=== PATIENT | female | born 1975 | race Caucasian/White ===

== ENCOUNTER 2018-07-06 10:12 | Inpatient (IN) | payer MEDICAID ==
[~2018-07-06] VITALS: Ht 160 cm; Wt 75.4 kg
[2018-07-06 10:21] VITALS: Ht 160 cm; Wt 75.4 kg
[2018-07-06 11:45] LABS: CALCIUM 8.9 mg/dL (8.5-10.1); CARBON DIOXIDE 29.6 mmol/L (21-32); CHLORIDE SERUM 100 mmol/L (98-107); CREATININE SERUM 0.6 mg/dL (0.6-1.0); GFR1 > 60 mL/min; GLUCOSE SERUM 237 mg/dL (74-106); POTASSIUM SERUM 4.3 mmol/L (3.5-5.1); SODIUM SERUM 135 mmol/L (136-145)
[2018-07-06 11:50] LABS: ALBUMIN 3.6 g/dL (3.4-5.0); ALKALINE PHOSPHATASE 86 U/L (46-116); ALT/SGPT 32 U/L (14-59); AST/SGOT 12 U/L (15-37); BILIRUBIN TOTAL 0.3 mg/dL (0.20-1.00); LIPASE 137 IU/L (73-393); TOTAL PROTEIN, SERUM 7.6 g/dL (6.4-8.2)
[2018-07-06 11:52] LABS: BASOPHIL % 0.3 % (0-2); PLATELET COUNT 297 x10^3mcL (130-400); RED CELL DISTRIBUTION WIDTH 13.1 % (11.5-14.5)
[2018-07-06 11:58] LABS: UA SPECIFIC GRAVITY <=1.005 (1.005-1.035); microscopic required? YES; urine erythrocyte 2+ (NEGATIVE)
[2018-07-06] MEDS ORDERED: METFORMIN500 M1 PO (13:46)
[2018-07-06] MEDS ORDERED: INSULIN SC (13:48)
[2018-07-06 14:50] LABS: MAGNESIUM 1.9 mg/dL (1.8-2.4); PHOSPHOROUS 3.6 mg/dL (2.5-4.9)
[2018-07-06 14:53] LABS: CHOLESTEROL/HDL RATIO 5.1
[2018-07-06 14:56] VITALS: BP 109/69
[2018-07-06 14:59] LABS: FREE T4 1.09 ng/dL (0.76-1.46); FREE THYROXINE INDEX 3.8 ug/dL (1.4-4.5); T3 TOTAL 1.11 ng/mL; T4(THYROXINE) 11.4 ug/dL (4.7-13.3)
[2018-07-06 16:32] LABS: AMPHETAMINE QUAL UR NONE DETECTED (See below)
[2018-07-06 16:55] VITALS: BP 103/57
[2018-07-06 21:01] VITALS: BP 104/63
[2018-07-07 05:13] VITALS: BP 103/56
[2018-07-07 06:33] LABS: CALCIUM 7.8 mg/dL (8.5-10.1); CARBON DIOXIDE 23.3 mmol/L (21-32); CHLORIDE SERUM 106 mmol/L (98-107); CREATININE SERUM 0.4 mg/dL (0.6-1.0); GFR1 > 60 mL/min; GLUCOSE SERUM 179 mg/dL (74-106); POTASSIUM SERUM 3.9 mmol/L (3.5-5.1); SODIUM SERUM 137 mmol/L (136-145)
[2018-07-07 06:53] LABS: BASOPHIL % 0.5 % (0-2); PLATELET COUNT 231 x10^3mcL (130-400); RED CELL DISTRIBUTION WIDTH 13.4 % (11.5-14.5)
[2018-07-07 07:59] VITALS: BP 114/64
[2018-07-07 11:54] VITALS: BP 113/71
[2018-07-07 11:56] VITALS: BP 99/61
[2018-07-07] MEDS ORDERED: LEVAQUIN750 MG PO (12:17)
[2018-07-07 13:02] VITALS: BP 113/71
== END 2018-07-07 13:52 | disposition home or self-care (01) | DRG 463 ==
LOC: ED 10:12 → DU 14:08
PROVIDERS: Emergency Medicine; Family Medicine
DX: N30.00 Acute cystitis without hematuria (principal); N17.0 Acute kidney failure with tubular necrosis; E11.65 Type 2 diabetes mellitus with hyperglycemia; R80.9 Proteinuria, unspecified; E78.5 Hyperlipidemia, unspecified; Z79.4 Long term (current) use of insulin; Z68.28 Body mass index [BMI] 28.0-28.9, adult; F17.210 Nicotine dependence, cigarettes, uncomplicated; Z79.84 Long term (current) use of oral hypoglycemic drugs
CPT/HCPCS: 82962; 83880; 84439; J0696; J1885; J2405; J7030; Q0092

== ENCOUNTER 2018-12-19 09:22 | Emergency (ER) | payer MEDICAID ==
[~2018-12-19] VITALS: Ht 160 cm; Wt 72.6 kg
[~2018-12-19 09:22] MED LIST: INSULIN SC; LEVAQUIN750 MG PO; METFORMIN500 M1 PO
[2018-12-19 09:23] VITALS: Ht 160 cm; Wt 72.6 kg
[2018-12-19 10:40] LABS: BASOPHIL % 0.3 % (0-2); PLATELET COUNT 242 x10^3mcL (130-400)
[2018-12-19 10:48] LABS: CALCIUM 8.8 mg/dL (8.5-10.1); CHLORIDE SERUM 100 mmol/L (98-107); CREATININE SERUM 0.6 mg/dL (0.6-1.0); GFR1 > 60 mL/min; GLUCOSE SERUM 285 mg/dL (74-106); POTASSIUM SERUM 4.3 mmol/L (3.5-5.1); RED CELL DISTRIBUTION WIDTH 14.6 % (11.5-14.5); SODIUM SERUM 138 mmol/L (136-145)
[2018-12-19 10:53] LABS: ALBUMIN 3.6 g/dL (3.4-5.0); ALKALINE PHOSPHATASE 70 U/L (46-116); ALT/SGPT 27 U/L (14-59); AST/SGOT 17 U/L (15-37); BILIRUBIN TOTAL 0.31 mg/dL (0.20-1.00); TOTAL PROTEIN, SERUM 7.5 g/dL (6.4-8.2)
[2018-12-19 11:09] LABS: microscopic required? YES; urine erythrocyte NEGATIVE (NEGATIVE)
[2018-12-19 13:12] VITALS: BP 129/72
== END 2018-12-19 15:01 | disposition home or self-care (01) ==
LOC: ED 09:22
PROVIDERS: Emergency Medicine
DX: N10 Acute pyelonephritis (principal); E11.9 Type 2 diabetes mellitus without complications; Z87.19 Personal history of other diseases of the digestive system
CPT/HCPCS: J0696; J1885; J7030

== ENCOUNTER 2019-02-27 19:05 | Emergency (ER) | payer MEDICAID ==
[~2019-02-27] VITALS: Ht 160 cm; Wt 73.9 kg
[2019-02-27 19:14] VITALS: Ht 160 cm; Wt 73.9 kg
[2019-02-27 21:29] LABS: microscopic required? YES; urine erythrocyte NEGATIVE (NEGATIVE)
[2019-02-27 23:48] VITALS: BP 124/76
== END 2019-02-27 23:48 | disposition home or self-care (01) ==
LOC: ED 19:05
PROVIDERS: Emergency Medicine
DX: N12 Tubulo-interstitial nephritis, not specified as acute or chronic (principal); E11.9 Type 2 diabetes mellitus without complications
CPT/HCPCS: J1885; Q0162

== ENCOUNTER 2019-11-28 22:02 | Emergency (ER) | payer MEDICAID ==
[~2019-11-28] VITALS: Ht 162.6 cm; Wt 75.7 kg
[2019-11-28 22:08] VITALS: Ht 162.6 cm; Wt 75.7 kg
[2019-11-28 23:41] LABS: microscopic required? YES; urine erythrocyte NEGATIVE (NEGATIVE)
[2019-11-28 23:43] LABS: BASOPHIL % 0.2 % (0-2); PLATELET COUNT 270 x10^3mcL (130-400)
[2019-11-28 23:57] LABS: CALCIUM 8.6 mg/dL (8.5-10.1); CHLORIDE SERUM 103 mmol/L (98-107); CREATININE SERUM 0.5 mg/dL (0.6-1.0); GFR1 > 60 mL/min; GLUCOSE SERUM 168 mg/dL (74-106); POTASSIUM SERUM 3.3 mmol/L (3.5-5.1); SODIUM SERUM 141 mmol/L (136-145)
[2019-11-29 00:02] LABS: ALBUMIN 3.3 g/dL (3.4-5.0); ALKALINE PHOSPHATASE 67 U/L (46-116); ALT/SGPT 33 U/L (14-59); AST/SGOT 18 U/L (15-37); BILIRUBIN TOTAL 0.2 mg/dL (0.20-1.00); LIPASE 133 IU/L (73-393); TOTAL PROTEIN, SERUM 6.8 g/dL (6.4-8.2)
[2019-11-29 03:07] VITALS: BP 117/71
== END 2019-11-29 03:07 | disposition home or self-care (01) ==
LOC: ED 22:02
PROVIDERS: Emergency Medicine
DX: R07.89 Other chest pain (principal); N39.0 Urinary tract infection, site not specified; E11.9 Type 2 diabetes mellitus without complications; Z90.49 Acquired absence of other specified parts of digestive tract
CPT/HCPCS: 36415; J1885; Q0092

== ENCOUNTER 2020-04-12 00:15 | Emergency (ER) | payer MEDICAID ==
[~2020-04-12] VITALS: Ht 157.5 cm; Wt 66.7 kg
[2020-04-12 00:27] VITALS: Ht 157.5 cm; Wt 66.7 kg
[2020-04-12 01:45] LABS: BASOPHIL % 0.8 % (0-2); PLATELET COUNT 248 x10^3mcL (130-400); RED CELL DISTRIBUTION WIDTH 15.2 % (11.5-14.5)
[2020-04-12 01:59] LABS: CALCIUM 8.4 mg/dL (8.5-10.1); CARBON DIOXIDE 27.6 mmol/L (21-32); CHLORIDE SERUM 102 mmol/L (98-107); CREATININE SERUM 0.6 mg/dL (0.6-1.0); GFR1 > 60 mL/min; GLUCOSE SERUM 259 mg/dL (74-106); POTASSIUM SERUM 3.8 mmol/L (3.5-5.1); SODIUM SERUM 135 mmol/L (136-145)
[2020-04-12 02:03] LABS: ALKALINE PHOSPHATASE 70 U/L (46-116); ALT/SGPT 34 U/L (14-59); AST/SGOT 10 U/L (15-37); BILIRUBIN TOTAL 0.27 mg/dL (0.20-1.00); LIPASE 83 IU/L (73-393); TOTAL PROTEIN, SERUM 6.2 g/dL (6.4-8.2)
[2020-04-12 04:38] VITALS: BP 114/66
== END 2020-04-12 04:38 | disposition home or self-care (01) ==
LOC: ED 00:15
PROVIDERS: Emergency Medicine
DX: R10.816 Epigastric abdominal tenderness (principal); R11.2 Nausea with vomiting, unspecified; E11.65 Type 2 diabetes mellitus with hyperglycemia; Z90.49 Acquired absence of other specified parts of digestive tract; Z87.19 Personal history of other diseases of the digestive system
CPT/HCPCS: J1885; J2405